=== PATIENT | female | born 1980 | race Caucasian/White ===

== ENCOUNTER 2017-12-13 17:35 | Emergency (ER) | payer MEDICARE, MEDICAID ==
[2017-12-13 18:16] VITALS: BP 143/95
--- NOTE | 2017-12-13 19:01 | UC ---
Throat Pain/Nasal Glenn HPI - HPI Summary HPI Summary: Pt c/o nasal congestion, bilateral ear pain, sinus pressure and pain . Vertigo , X 2-3 days. - History of Current Complaint Chief Complaint: UCEar Stated Complaint: R EAR COMPLAINT Time Seen by Provider: 12/13/17 18:03 Hx Obtained From: Patient Hx Last Menstrual Period: DUE NOW ?: No Onset/Duration: Gradual Onset, Lasting Days, Still Present Severity: Moderate Associated Signs & Symptoms: Positive: Wheezing, Sinus Discomfort Related History: Smoking - Allergies/Home Medications Allergies/Adverse Reactions: Allergies Allergy/AdvReac Type Severity Reaction Status Date / Time No Known Allergies Allergy Verified 12/13/17 18:16 Home Medications: Home Medications Buprenorphine HCl-Naloxone HCl [Suboxone 8-2 mg] 1 mis 12/13/17 [History] PMH/Surg Hx/FS Hx/Imm Hx Previously Healthy: Yes Psychological History: Other - recovering opioid addict Other Psychological History: recovery addict opioid - Surgical History Surgical History: Yes Surgery Procedure, Year, and Place: APPY, BOWEL RESECTION, LAZY EYE SURGERY AGE 4, TUBAL - Family History Known Family History: Positive: Cardiac Disease - Social History Lives: With Family Alcohol Use: None Substance Use Type: Other Substance Use Comment - Amount & Last Used: RECOVERING ADDICT Smoking Status (MU): Heavy Every Day Tobacco Smoker Have You Smoked in the Last Year: Yes Review of Systems Constitutional: Chills, Fatigue Skin: Negative Eyes: Negative ENT: Sinus Congestion, Sinus Pain/Tenderness Respiratory: Cough Cardiovascular: Negative Gastrointestinal: Negative Genitourinary: Negative Motor: Negative Neurovascular: Negative Musculoskeletal: Negative Neurological: Negative Psychological: Negative Is Patient Immunocompromised?: No All Other Systems Reviewed And Are Negative: Yes Physical Exam Triage Information Reviewed: Yes Appearance: Ill-Appearing, Thin Vital Signs: Initial Vital Signs Temp 98.7 F 12/13/17 18:07 Pulse 94 12/13/17 18:07 Resp 18 12/13/17 18:07 BP 143/95 12/13/17 18:07 Pulse Ox 97 12/13/17 18:07 Vital Signs Reviewed: Yes Eye Exam: Normal ENT Exam: Other ENT: Positive: Nasal congestion, Sinus tenderness Neck exam: Normal Respiratory Exam: Normal Cardiovascular Exam: Normal Musculoskeletal Exam: Normal Neurological Exam: Normal Psychological Exam: Normal Skin Exam: Normal Throat Pain/Nasal Course/Dx - Differential Dx/Diagnosis Differential Diagnosis/HQI/PQRI: Influenza, Sinusitis, Tonsillitis Provider Diagnoses: Sinusitis Discharge - Discharge Plan Condition: Stable Disposition: HOME Prescriptions: Amoxicillin PO (*) [Amoxicillin 875 MG (*)] 875 mg PO Q12H #20 tab guaiFENesin ER TAB [Mucinex*] 600 mg PO Q12H #14 tab.er Patient Education Materials: Sinusitis (ED) Referrals: [facility] [place] [facility] [Outside] - If Needed
== END 2017-12-13 18:56 | disposition home or self-care (01) ==
LOC: UCCORT 17:35
DX: J32.9 Chronic sinusitis, unspecified (principal); H92.03 Otalgia, bilateral; R42 Dizziness and giddiness; F17.200 Nicotine dependence, unspecified, uncomplicated
CPT/HCPCS: 87502; 99202; G0463